=== PATIENT | female | born 1990 | race Caucasian/White ===

== ENCOUNTER → 2019-11-15 | Day surgery (SDC) | payer OTHER ==
[~2019-11-15] VITALS: Ht 170.2 cm; Wt 63.5 kg
[2019-11-15 08:29] VITALS: BP 103/57
[2019-11-15 11:07] VITALS: BP 95/32
== END | disposition home or self-care (01) ==
LOC: DS 07:47 → GI 10:00 → OR 11:00
DX: R19.7 Diarrhea, unspecified (principal); K63.89 Other specified diseases of intestine; Z79.2 Long term (current) use of antibiotics; Z98.890 Other specified postprocedural states
CPT/HCPCS: 45378; J1200; J1610; J2250; J2310; J3010; J3490